=== PATIENT | male | born 1950 | race Caucasian/White ===

== ENCOUNTER 2016-12-02 03:06 | Emergency (ER) | payer OTHER ==
[~2016-12-02] VITALS: Ht 175.3 cm; Wt 131.0 kg
[~2016-12-02 03:06] MED LIST: ACET500C5 PO; AMLO5TAB4 PO; ASPI81TA3 PO; ATOR40TA68 PO; METO-448 PO; NIT4 SL
[2016-12-02 03:10] VITALS: Ht 175.3 cm; Wt 131.0 kg
[2016-12-02] MEDS ORDERED: AMO500 PO (03:35)
[2016-12-02] MEDS ORDERED: IBUP-1542 PO (03:35)
--- NOTE | 2016-12-02 03:50 | ERD ---
ER Documentation Chief Complaint Date/Time DATE: 12/02/16 TIME: 03:48 Chief Complaint left sore throat and left ear pain HPI 66-year-old male presents to emergency department for complaints of left sore throat that started yesterday, radiating to the left jaw area and left ear area. Patient described the pain as throbbing pain, 6/10 scale, is worse upon swallowing. Patient denies any fever or chills. Patient denies any shortness breath or wheezing. Patient has any stridor. Patient did not take medications to help with symptoms. ROS All systems reviewed and are negative except as per history of present illness. Medications Home Meds Active Scripts Ibuprofen* (Motrin*) 600 Mg Tab, 600 MG PO Q6H Y for PAIN AND OR ELEVATED TEMP, #30 TAB Prov:ELSIE STANLEY NP 12/02/16 Amoxicillin* (Amoxicillin*) 500 Mg Cap, 500 MG PO TID for 10 Days, CAP Prov:ELSIE STANLEY NP 12/02/16 Acetaminophen* (Tylophen*) 500 Mg Capsule, 1 CAP PO Q6H Y for PAIN AND OR ELEVATED TEMP, #20 CAP Prov:GINNY MARQUIS PA-C 04/29/15 Metoprolol Tartrate* (Lopressor*) 25 Mg Tab, 12.5 MG PO BID, #60 TAB Prov:ALMA RUCKER MD 12/20/14 Nitroglycerin* (Nitrostat*) 25 Tab Subl, 1 TAB SL Q5M Y for CHEST PAIN, #30 TAB Prov:ALMA RUCKER MD 12/20/14 Aspirin (Aspirin) 81 Mg Chew, 81 MG PO DAILY, #100 TAB Prov:ALMA RUCKER MD 12/20/14 Reported Medications Atorvastatin* (Atorvastatin*) 40 Mg Tablet, 40 MG PO HS, TAB 12/17/14 Amlodipine Besylate* (Norvasc*) 5 Mg Tablet, 5 MG PO DAILY, TAB 12/17/14 Allergies Allergies: Coded Allergies: iodine (Verified Allergy, Unknown, 04/29/15) PMhx/Soc History of Surgery: Yes (TONSIL 5YRS AGO) Anesthesia Reaction: No Hx Neurological Disorder: No Hx Respiratory Disorders: No Hx Cardiac Disorders: Yes (HTN; leaking valve) Hx Psychiatric Problems: No Hx Miscellaneous Medical Probl: Yes (DIVERTICULOSIS) Hx Alcohol Use: No Hx Substance Use: No Hx Tobacco Use: No FmHx Family History: No coronary disease, No diabetes, No other Physical Exam Vitals Vital Signs Date Time Temp Pulse Resp B/P Pulse Ox O2 Delivery O2 Flow Rate FiO2 12/02/16 03:10 97.4 71 18 155/74 98 Physical Exam GENERAL: The patient is well developed and appropriate for usual state of health, in no apparent distress. HEENT: Atraumatic. Ears: Normal tympanic membrane, no erythema or bulging. No ear canal swelling. No ear discharge. Nose: normal nasal turbinates, no erythema or swelling. Normal nasal discharge. Throat: oropharynx erythematous with +1 left tonsillar swelling and exudate noted. No lymphadenopathy. CHEST: Clear to auscultation bilaterally. There are no rales, wheezes or rhonchi. HEART: Regular rate and rhythm. No murmurs, clicks, rubs or gallops. No S3 or S4. ABDOMEN: Soft, nontender and nondistended. Good bowel sounds. No rebound or guarding. No gross peritonitis. No gross organomegaly or masses. No Jimenez sign or McBurney point tenderness. BACK: No midline or flank tenderness. EXTREMITIES: Equal pulses bilaterally. There is no peripheral clubbing, cyanosis or edema. No focal swelling or erythema. Full range of motion. Grossly neurovascularly intact. NEURO: Alert and oriented. Cranial nerves 2-12 intact. Motor strength in all 4 extremities with 5/5 strength. Sensation grossly intact. Normal speech and gait. SKIN: There is no apparent rash or petechia. The skin is warm and dry. HEMATOLOGIC AND LYMPHATIC: There is no evidence of excessive bruising or lymphedema. No gross cervical, axillary, or inguinal lymphadenopathy. Procedures/MDM Medical decision making: Patient symptoms is likely consistent with acute bacterial pharyngitis, most likely strep throat. Low suspicion for peritonsillar abscess, mononucleosis, no symptoms of epiglottitis, laryngitis. No oral airway obstruction noted. No symptoms of sepsis at this time. Patient appears well and is hemodynamically stable. Patient was given for amoxicillin, ibuprofen, is advised to follow-up with primary care doctor in 2-3 days for reevaluation of symptoms. Patient is advised to do salt water gargles. Patient is advised to return to emergency department for worsening symptoms. Disposition: Home. Stable. Departure Diagnosis: Primary Impression: Acute bacterial pharyngitis Condition: Stable Patient Instructions: Pharyngitis, Strep (Presumed) ELSIE STANLEY NP Dec 02, 2016 03:50
== END 2016-12-02 04:13 | disposition home or self-care (01) ==
LOC: FTE 03:06
DX: J02.9 Acute pharyngitis, unspecified (principal); I10 Essential (primary) hypertension; Z79.82 Long term (current) use of aspirin
CPT/HCPCS: 99283

== ENCOUNTER 2018-09-06 06:51 | Emergency (ER) | payer MEDICARE, BC ==
[~2018-09-06] VITALS: Ht 177.8 cm; Wt 129.0 kg
[~2018-09-06 06:51] MED LIST changes: +AMOX500C2 PO; +ASPI-831 PO; -ASPI81TA3 PO; +IBUP-1542 PO; -NIT4 SL; +NITR0.4T39 SL
[2018-09-06 06:55] VITALS: Ht 177.8 cm; Wt 129.0 kg
[2018-09-06] MEDS ORDERED: SOD CHLORIDE 0.9% 500 ML IV STA (07:34)
[2018-09-06] MEDS ORDERED: ONDANSETRON 4 MG INJ IV STA (07:34)
[2018-09-06] MEDS ORDERED: morphine 4 MG/ML VIAL IV STA (07:34)
--- NOTE | 2018-09-06 07:54 | ERD ---
ER Documentation Chief Complaint Chief Complaint Pt c/o BARRETT, AP, Vomiting, all over body pain HPI This is 67-year-old male who said he woke up this morning with diffuse body aches with chills and he vomited once. He said he had some abdominal cramps before he threw up and then they resolved after he vomited. Vomit was nonbloody and nonbilious. No chest pain or shortness of breath or cough no dysuria hematuria or back pain no syncope or palpitations. He said he is only here because his told him he needs to get checked out because he has a heart condition in the past. No shortness of breath or wheezing ROS All systems reviewed and are negative except as per history of present illness. Medications Home Meds Reported Medications Aspirin (Low Dose Aspirin) 81 Mg Tablet.dr, 81 MG PO DAILY, #30 TAB 09/06/18 Metoprolol Tartrate* (Lopressor*) 25 Mg Tab, 25 MG PO BID, #60 TAB 09/06/18 Losartan Potassium* (Losartan Potassium*) 100 Mg Tablet, 100 MG PO DAILY, TAB 09/06/18 Atorvastatin* (Atorvastatin*) 40 Mg Tablet, 40 MG PO QHS, #30 TAB 09/06/18 Amlodipine Besylate* (Norvasc*) 5 Mg Tablet, 5 MG PO DAILY, TAB 09/06/18 Discontinued Reported Medications Atorvastatin* (Atorvastatin*) 40 Mg Tablet, 40 MG PO HS, TAB 12/17/14 Amlodipine Besylate* (Norvasc*) 5 Mg Tablet, 5 MG PO DAILY, TAB 12/17/14 Discontinued Scripts Ibuprofen* (Motrin*) 600 Mg Tab, 600 MG PO Q6H PRN for PAIN AND OR ELEVATED TEMP, #30 TAB Prov:ELSIE STANLEY NP 12/02/16 Amoxicillin* (Amoxicillin*) 500 Mg Cap, 500 MG PO TID for 10 Days, CAP Prov:ELSIE STANLEY NP 12/02/16 Acetaminophen* (Tylophen*) 500 Mg Capsule, 1 CAP PO Q6H PRN for PAIN AND OR ELEVATED TEMP, #20 CAP Prov:GINNY MARQUIS PA-C 04/29/15 Metoprolol Tartrate* (Lopressor*) 25 Mg Tab, 12.5 MG PO BID, #60 TAB Prov:ALMA RUCKER MD 12/20/14 Nitroglycerin* (Nitrostat*) 25 Tab Subl, 1 TAB SL Q5M PRN for CHEST PAIN, #30 TAB Prov:ALMA RUCKER MD 12/20/14 Aspirin (Aspirin) 81 Mg Chew, 81 MG PO DAILY, #100 TAB Prov:ALMA RUCKER MD 12/20/14 Allergies Allergies: Coded Allergies: iodine (Verified Allergy, Unknown, 09/06/18) PMhx/Soc History of Surgery: Yes (tonsillectomy 5YRS AGO) Anesthesia Reaction: No Hx Neurological Disorder: No Hx Respiratory Disorders: No Hx Cardiac Disorders: Yes (HTN; leaking valve) Hx Psychiatric Problems: No Hx Miscellaneous Medical Probl: Yes (DIVERTICULOSIS) Hx Alcohol Use: No Hx Substance Use: No Hx Tobacco Use: No Smoking Status: Never smoker FmHx Family History: No coronary disease Physical Exam Vitals Vital Signs Date Temp Pulse Resp B/P (MAP) Pulse Ox O2 O2 Flow FiO2 Time Delivery Rate 09/06/18 98.2 85 20 167/72 95 06:55 (103) Physical Exam Const: Well-developed, well-nourished Head: Atraumatic, normocephalic Eyes: Normal Conjunctiva, PERRLA, EOMI, normal sclera, no nystagmus ENT: Normal External Ears, Nose and Mouth, moist mucus membranes. Neck: Full range of motion. No meningismus, no lymphadenopathy. Resp: Clear to auscultation bilaterally, no wheezing, rhonchi, rales Cardio: Regular rate and rhythm, no murmurs, S1 S2 present Abd: Soft, mild diffuse tenderness, non distended. Normal bowel sounds, no guarding or rebound, no pulsitile abdominal masses or bruits Skin: No petechiae or rashes, no ecchymosis , no maculopapular rash Back: No midline or flank tenderness Ext: No cyanosis, or edema, FROM x 4, normal inspection, neuro vascularly intact x 4 Neur: Awake and alert, STR 5/5 x 4, sensation intact x 4, no focal findi ngs, cerebellum intact Psych: Normal Mood and Affect Result Diagram: 09/06/18 0745 09/06/18 0745 Results 24 hrs Laboratory Tests Test 09/06/18 07:45 White Blood Count 15.4 10^3/ul Red Blood Count 5.10 10^6/ul Hemoglobin 16.3 g/dl Hematocrit 48.1 % Mean Corpuscular Volume 94.3 fl Mean Corpuscular Hemoglobin 32.0 pg Mean Corpuscular Hemoglobin Concent 33.9 g/dl Red Cell Distribution Width 12.7 % Platelet Count 242 10^3/UL Mean Platelet Volume 10.1 fl Immature Granulocytes % 0.800 % Neutrophils % 87.1 % Lymphocytes % 8.7 % Monocytes % 3.2 % Eosinophils % 0.1 % Basophils % 0.1 % Nucleated Red Blood Cells % 0.0 /100WBC Immature Granulocytes # 0.130 10^3/ul Neutrophils # 13.4 10^3/ul Lymphocytes # 1.3 10^3/ul Monocytes # 0.5 10^3/ul Eosinophils # 0.0 10^3/ul Basophils # 0.0 10^3/ul Nucleated Red Blood Cells # 0.0 10^3/ul Urine Color YELLOW Urine Clarity CLEAR Urine pH 6.0 Urine Specific Wheelwright 1.026 Urine Ketones NEGATIVE mg/dL Urine Nitrite NEGATIVE mg/dL Urine Bilirubin NEGATIVE mg/dL Urine Urobilinogen NEGATIVE mg/dL Urine Leukocyte Esterase NEGATIVE Kevin/ul Urine Hemoglobin NEGATIVE mg/dL Urine Glucose NEGATIVE mg/dL Urine Total Protein NEGATIVE mg/dl Sodium Level 145 mmol/L Potassium Level 4.7 mmol/L Chloride Level 108 mmol/L Carbon Dioxide Level 26 mmol/L Anion Gap 11 Blood Urea Nitrogen 16 mg/dl Creatinine 0.85 mg/dl Est Glomerular Filtrat Rate mL/min > 60 mL/min Glucose Level 121 mg/dl Calcium Level 9.5 mg/dl Total Bilirubin 0.8 mg/dl Direct Bilirubin 0.00 mg/dl Indirect Bilirubin 0.8 mg/dl Aspartate Amino Transf (AST/SGOT) 25 IU/L Alanine Aminotransferase (ALT/SGPT) 38 IU/L Alkaline Phosphatase 62 IU/L Troponin I < 0.012 ng/ml Total Protein 7.6 g/dl Albumin 4.4 g/dl Globulin 3.20 g/dl Albumin/Globulin Ratio 1.37 Lipase 108 U/L Current Medications Medications Dose Sig/Breezy Start Time Status Last (Trade) Ordered Route PRN Stop Time Admin Dose Reason Admin Sodium 500 ml @ Q1H STAT 09/06/18 DC 09/06/18 Chloride 500 mls/hr IV 07:34 09/06/18 07:48 08:33 Morphine 4 mg ONCE STAT 09/06/18 DC 09/06/18 Sulfate IV 07:34 09/06/18 07:49 (morphine) 07:40 Ondansetron 4 mg ONCE STAT 09/06/18 DC 09/06/18 HCl (Zofran IV 07:34 09/06/18 07:49 Inj) 07:40 Procedures/MDM Ordering MD: DYLAN YU DO Location: E/R Room/Bed: PROCEDURE: CT Abdomen and pelvis without contrast. CLINICAL INDICATION: Abdominal pain TECHNIQUE: CT scan of the abdomen and pelvis without contrast was performed on a multidetector high-resolution CT scan. . Coronal and sagittal reformatted images were obtained from the axial source images. Standard CT scan of the abdomen pelvis without contrast protocols were performed. The total exam CTDI equals 23.44 mGy and the total exam DLP equals 1544.32 mGy- cm. One or more of the following dose reduction techniques were used: - Automated exposure control. - Adjustment of the mA and/or kV according to patient size. Use of iterative reconstruction technique. Dicom images are available COMPARISON: None. FINDINGS: The kidneys are normal in size without hydronephrosis or calculi bilaterally. There is a 5 cm pedunculated inferior left renal cyst and a 3.8 cm partially pedunculated right mid lateral renal cyst. Additional medial mid to superior left renal 1.3 cm cyst. No other initial masses bilaterally. No evidence ureteral calcified calculi or dilatation. Partially contracted otherwise unremarkable urinary bladder. Prostate unremarkable. There is a 1 cm long segment of moderate annular narrowing of the distal sigmoid colon with tapered margins likely focal contraction. A mass cannot be excluded and follow-up colonoscopy is suggested. Diverticular changes of the mid to proximal sigmoid and mid to distal descending colon but no CT evidence of diverticulitis. The remainder of the colon is unremarkable. Tiny hiatal hernia. Stomach otherwise unremarkable. Small bowel and appendix unremarkable. No evidence of intra-abdominal free air, free fluid, abscesses or lym phadenopathy. Liver spleen pancreas adrenal glands and gallbladder are unremarkable. No evidence of biliary ductal dilation. Mild bibasilar dependent subsegmental atelectasis and chronic interstitial lung disease. Atherosclerotic vascular disease. No evidence of aortic aneurysm. Umbilical and supra umbilical fat-containing hernias and right inguinal fat- containing hernia without herniated bowel or strangulation. Degenerative changes lower thoracic and lumbar spine without acute osseous findings are osteoblastic/osteolytic lesions. IMPRESSION: 1. Diverticulosis of the sigmoid and descending colon without CT evidence of diverticulitis. 2. Short 1 cm long segment of moderate annular narrowing of the distal sigmoid colon with tapered margins likely focal contraction. Mass in this region cannot be excluded. Follow-up colonoscopy is suggested. 3. No calcified urinary calculi or obstructive uropathy. Bilateral renal cysts. 4. Umbilical and supra umbilical and right inguinal fat-containing hernias without herniated bowel or strangulation. RPTAT:AAJJ Physician Jaime Date Time Electronically viewed and signed by Zenobia Temple Physician on 09/06/2018 08:50 BM/ CC: DYLAN YU DO [phone] The patient likely has a viral illness. He said he had some chicken and salad last night that his family had also but they are not sick. He says he has some body aches with nausea vomiting this morning with some mid abdominal pain that i s unremarkable on CAT scan.. Likely has a viral gastroenteritis type of illness. Given warning signs to return. Discharge with symptomatic control Departure Diagnosis: Primary Impression: Viral illness Condition: Stable DYLAN YU DO Sep 06, 2018 07:54
[2018-09-06] MEDS ORDERED: AMLO5TAB4 PO (08:51)
[2018-09-06] MEDS ORDERED: ASPI81TA52 PO (08:52)
[2018-09-06] MEDS ORDERED: ATOR40TA68 PO (08:52)
[2018-09-06] MEDS ORDERED: METO-448 PO (08:52)
[2018-09-06] MEDS ORDERED: LOSA100T15 PO (08:52)
[2018-09-06] MEDS ORDERED: TRAM50TA2 PO (09:30)
[2018-09-06] MEDS ORDERED: ONDA4TAB14 PO (09:30)
[2018-09-06] MEDS ORDERED: DICY10CA40 PO (09:30)
[2018-09-06 10:15] VITALS: BP 110/48; PULSE 78; RESP 20
== END 2018-09-06 10:16 | disposition home or self-care (01) ==
LOC: E/R 06:51
DX: B34.9 Viral infection, unspecified (principal); I10 Essential (primary) hypertension; K57.30 Diverticulosis of large intestine without perforation or abscess without bleeding; Z79.82 Long term (current) use of aspirin
CPT/HCPCS: 36415; 74176; 80053; 81003; 83690; 84484; 85025; 87400; 96374; 96375; 99285; J2270; J2405; J7040